=== PATIENT | female | born 1945 | race Caucasian/White ===

== ENCOUNTER 2018-06-13 07:29 | Day surgery (SDC) | payer OTHER ==
[~2018-06-13] VITALS: Ht 165.1 cm; Wt 54.0 kg
[~2018-06-13 07:29] MED LIST: Calcium + Vita1 EACH PO; Cinnamon500 MG PO; Multivitamin1 EAC1 PO; VITAMIN C500 M1 PO
[2018-06-13] MEDS ORDERED: ALLEGRA ALLERG180 MG (08:10)
== END 2018-06-13 10:16 | disposition home or self-care (01) ==
LOC: ORSCSDS 07:29 → ORD 09:45 → ORSCSDS 10:16
PROVIDERS: Internal Medicine Gastroenterology
PROC: 0DBP8ZX Excision of Rectum, Via Natural or Artificial Opening Endoscopic, Diagnostic (ICD-10-PCS; principal; 2018-06-13 09:00)
DX: Z12.11 Encounter for screening for malignant neoplasm of colon (principal); K62.1 Rectal polyp; Z86.010 Personal history of colon polyps; K57.30 Diverticulosis of large intestine without perforation or abscess without bleeding; E11.9 Type 2 diabetes mellitus without complications; I10 Essential (primary) hypertension; E78.5 Hyperlipidemia, unspecified
CPT/HCPCS: 88305; J0330; J1980; J2405; J7120

== ENCOUNTER → 2019-02-04 | Outpatient (CLI) | payer OTHER ==
[~2019-02-04] MED LIST changes: +ALLEGRA ALLERG180 MG
== END | disposition home or self-care (01) ==
LOC: LAB EV 11:35 → LAB SHORT 11:35
DX: L03.90 Cellulitis, unspecified (principal)
CPT/HCPCS: 87070; 87075; 87077; 87147; 87186; 87205

== ENCOUNTER 2021-08-30 07:28 | Day surgery (SDC) | payer OTHER ==
[~2021-08-30] VITALS: Ht 162.6 cm; Wt 53.6 kg
--- NOTE | 2021-08-30 09:00 | NUR ---
08/30/21 0900 Harry Herbert WOULD LIKE SECOND ENEMA PERFORMED DUE TO PATIENT STILL HAVING LIQUID BROWN STOOLS.
== END 2021-08-30 10:01 | disposition home or self-care (01) ==
LOC: ORSCSDS 07:28
PROVIDERS: Internal Medicine Gastroenterology
PROC: 0DJD8ZZ Inspection of Lower Intestinal Tract, Via Natural or Artificial Opening Endoscopic (ICD-10-PCS; principal; 2021-08-30 09:00)
DX: Z12.11 Encounter for screening for malignant neoplasm of colon (principal); Z86.010 Personal history of colon polyps; K57.30 Diverticulosis of large intestine without perforation or abscess without bleeding; E11.9 Type 2 diabetes mellitus without complications
CPT/HCPCS: 82947; J2704; J7120

== ENCOUNTER → 2022-07-31 | Outpatient (CLI) | payer OTHER ==
[2022-07-31 20:53] LABS: Creatinine, Urine Random 56.3 mg/dL (27.00-270.00)
[2022-07-31 20:56] LABS: Microalb/Creat Ratio UR, Rand 35.346 mg/g (0.000-30.000); Microalbumin, Random Urine 19.9 mg/L (0.000-20.000)
== END | disposition home or self-care (01) ==
LOC: LAB 13:15 → LAB SHORT 13:15
PROVIDERS: Family Medicine
DX: E11.69 Type 2 diabetes mellitus with other specified complication (principal)
CPT/HCPCS: 82043; 82570

== ENCOUNTER 2023-05-17 14:33 | Emergency (ER) | payer OTHER ==
[~2023-05-17] VITALS: Ht 165.1 cm; Wt 54.4 kg
[2023-05-17 15:05] LABS: BASOPHILS ABSOLUTE AUTO 0.04 K/mm3 (0.00-0.23); BASOPHILS PERCENT AUTO 1 % (0-2); EOSINOPHILS ABSOLUTE AUTO 0.04 K/mm3 (0.00-0.68); EOSINOPHILS PERCENT AUTO 1 % (0-6); Hematocrit 34.8 % (33.0-51.0); Hemoglobin 11.3 g/dL (11.5-16.0); IMMATURE GRAN ABSOLUTE AUTO 0.01 K/mm3 (0.00-0.10); IMMATURE GRAN PERCENT AUTO 0 % (0-1); LYMPHOCYTES ABSOLUTE AUTO 1.21 K/mm3 (0.84-5.20); LYMPHOCYTES PERCENT AUTO 23 % (21-46); MONOCYTES ABSOLUTE AUTO 0.48 K/mm3 (0.16-1.47); MONOCYTES PERCENT AUTO 9 % (4-13); Mean Corpuscular HGB 28.6 pg (26.0-34.0); Mean Corpuscular HGB Conc 32.5 g/dL (31.5-36.5); Mean Corpuscular Volume 88 fL (80-100); Mean Platelet Volume 10.8 fL (9.1-12.4); NEUTROPHILS ABSOLUTE AUTO 3.55 K/mm3 (1.96-9.15); NEUTROPHILS PERCENT AUTO 67 % (41-73); Platelet Count 237 K/mm3 (150-400); RDW Coefficient Variation 15.3 % (11.7-14.2); RDW Standard Deviation 49.1 fL (35.1-46.3); Red Blood Cell Count 3.95 M/mm3 (3.80-5.20); White Blood Cell Count 5.33 K/mm3 (4.00-11.30)
[2023-05-17 15:29] LABS: Albumin, Blood 3.3 g/dL (3.4-5.0); Albumin/Globulin Ratio 0.7 (0.8-1.8); Bilirubin, Total 0.2 mg/dL (0.1-1.0); Bun/Creatinine Ratio 29.9 (12.0-20.0); Calcium, Blood 9.1 mg/dL (8.5-10.1); Creatinine, Blood 0.6 mg/dL (0.40-1.00); Potassium, Blood 3.9 mmol/L (3.5-5.5); Total Protein, Blood 8.3 g/dL (6.4-8.2)
[2023-05-17 18:18] VITALS: BP 139/71
== END 2023-05-17 18:19 | disposition home or self-care (01) ==
LOC: ER 14:33
PROVIDERS: Emergency Medicine
DX: R07.9 Chest pain, unspecified (principal); Z88.8 Allergy status to other drugs, medicaments and biological substances; Z88.5 Allergy status to narcotic agent; Z88.1 Allergy status to other antibiotic agents; Z79.899 Other long term (current) drug therapy
CPT/HCPCS: 71046; 80053; 84484; 85025; 93005; 93010; 99285-25

== ENCOUNTER 2024-02-27 07:32 | Day surgery (SDC) | payer OTHER ==
[~2024-02-27] VITALS: Ht 162.6 cm; Wt 54.7 kg
[~2024-02-27 07:32] MED LIST changes: +ASPI81CH PO; +IRON FOLATE PL1 EACH PO; +Lidocaine HCl/Pf 1% 5 ML VIAL ONE; +NS 500 ML IV ONE; +Triamcinolone Inj Susp 40 MG / ML 1ML Vial ONE
[2024-02-27] MEDS ORDERED: NS 500 ML IV ONE (08:29)
[2024-02-27] MEDS ORDERED: Midazolam HCl 1MG / ML 2ML Vial ONE (08:31)
[2024-02-27] MEDS ORDERED: FentaNYL Citrate 50 MCG/ML 2 ML Injection ONE (08:31)
--- NOTE | 2024-02-27 08:53 | NUR ---
02/27/[address] NOTIFIED OF PATIENT ALLERGY TO CIPRO, WAREHOUSE OPERATOR NOTIFIED
[2024-02-27] MEDS ORDERED: Balanced Salt Epinephrine Irrigation Solution 500 mL IR ONE (09:00)
[2024-02-27 14:25] VITALS: BP 146/84
== END 2024-02-27 09:37 | disposition home or self-care (01) ==
LOC: ORSCSDS 07:32
PROVIDERS: Ophthalmology
PROC: 08RK3JZ Replacement of Left Lens with Synthetic Substitute, Percutaneous Approach (ICD-10-PCS; principal; 2024-02-27 09:00)
DX: E11.36 Type 2 diabetes mellitus with diabetic cataract (principal); H25.812 Combined forms of age-related cataract, left eye; Z96.1 Presence of intraocular lens; I10 Essential (primary) hypertension; E78.5 Hyperlipidemia, unspecified; Z79.82 Long term (current) use of aspirin; Z79.899 Other long term (current) drug therapy
CPT/HCPCS: 82947; J2001; J2250; J3010; J3301; J7040; V2632